=== PATIENT | female | born 1995 | race Caucasian/White ===

== ENCOUNTER 2016-11-17 13:27 | Emergency (ER) | payer BC ==
[2016-11-17] MEDS ORDERED: KETOROLAC TROMETHAMINE 30 MG/ML VIAL IM ONE (13:45)
[2016-11-17] MEDS ORDERED: ACETAMINOPHEN 500 MG TABLET PO ONE (13:45)
[2016-11-17] MEDS ORDERED: KETOROLAC TROMETHAMINE 30 MG/ML VIAL ONE (13:48)
--- NOTE | 2016-11-17 14:23 | ERNOTE ---
Upper Extremity HPI - Narrative Date of Service: 11/17/16 - General Extremities Pain Location: elbow: right - Pain and Swelling after a fall Time Seen by Provider: 11/17/16 13:42 Source: patient Exam Limitations: no limitations - Immun/Allergies/Home Medications Allergies/Adverse Reactions: Allergies Allergy/AdvReac Type Severity Reaction Status Date / Time No Known Allergies Allergy Verified 11/17/16 13:37 Home Medications: HOME MEDICATIONS Norgestimate-Ethinyl Estradiol [Trinessa Tablet] 1 each PO DAILY 05/24/14 [Last Taken Unknown] Acetaminophen [Tylenol] 1,000 mg PO Q8H #12 tablet 11/17/16 [Last Taken Unknown] Naproxen [Naprosyn] 500 mg PO BID #20 tablet 11/17/16 [Last Taken Unknown] traMADol HCL [Ultram] 50 mg PO Q8H #12 tablet 11/17/16 [Last Taken Unknown] - History of Present Illness Narrative: Patient comes due to pain on the R elbow area after a fall. Pain gets worse on ROM. Patient dines any other trauma and LOC. Occurred: yesterday Location of Incident: home Severity: moderate Method of Injury: Reports: fell, direct blow Reason for Fall: Reports: slipped, tripped Loss of Consciousness: Reports: no loss of consciousness Modifying Factors - (Improves): Reports: immobilization, rest Modifying Factors - (Worsens): Reports: movement Associated Symptoms: Reports: tingling, loss of power (rt arm) Other Injuries: Reports: none Prior Treament: Denies: recently seen Review of Systems - Review of Systems Constitutional: Present: no symptoms reported EYE: Present: no symptoms reported ENT: Present: no symptoms reported Respiratory: Present: no symptoms reported Cardiology: Present: no symptoms reported Gastrointestinal/Abdominal: Present: no symptoms reported Genitourinary: Present: no symptoms reported Musculoskeletal: Present: muscle pain Skin: Present: other - Abrassions Neurological: Present: no symptoms reported Endocrine: Present: no symptoms reported Hematologic/Lymphatic: Present: no symptoms reported Psych: Present: no symptoms reported All Other Systems: All systems neg except as marked - Patient's Past Medical History Patient History - Medical: No pertinent hx Patient History - Cancer: No Hx of Cancer Patient History - Surgical Procedures: Other Patient History - Other: None - Social History Living Situations: home Alcohol Use: occasionally Physical Exam - Physical Exam General Appearance: Present: wd/wn, alert, no apparent distress, other - GCS: 15 /15 Ears, Nose, Throat: Present: normal ENT inspection Neck: Present: normal inspection Respiratory: Present: no respiratory distress Cardiovascular/Chest: Present: normal peripheral pulses Gastrointestinal/Abdominal: Present: soft. Absent: tenderness Back Exam: Present: normal inspection, normal range of motion, no CVA tenderness , no vertebral tenderness Extremity Exam: Present: decreased range of motion - R elbow area, pelvis stable , bony tenderness - Lateral epicondyle of the R elbow, joint swelling - mild. Absent: joint redness Neurological Exam: Present: alert, oriented, normal mood/affect, no motor/ sensory deficits Skin Exam: Present: other - patient with superficial abrasions on the R elbow area.. Absent: cyanosis, jaundice, pallor Lymphatic Exam: Present: no adenopathy ED Progress - Date and Time Seen: Date and Time: 11/17/16 14:17 Patient with no deep puncture wound. There is an anterior and posterior fat pat noticed. Immobilization has been recommended. - Vital Signs Patient's Vital Signs:: I have reviewed the patient's vital signs. Vital Signs: Vital Signs 11/17/16 13:32 Temperature 36.0 C L Pulse Rate 98 Respiratory 12 Rate Blood Pressure 119/72 O2 Sat by Pulse 100 Oximetry - X-Ray X-Ray #1 X-Ray: elbow X-ray Comments: No Fx reported by Radiologist - Progress/Reassessment Chief Complaint: Upper Extremity Injury/Problem Progress:: Improved - Transfer of Care Expected Disposition: Discharge Departure Clinical Impression: Elbow sprain Qualifiers: Encounter type: initial encounter Laterality: right Qualified Code(s): S53.401A - Unspecified sprain of right elbow, initial encounter - Departure Disposition: Home self-care Condition: Stable Instructions: Elbow Contusion, Elbow Fracture, Simple, Form - Excuse from Work , School, or Physical Activity Additional Instructions: Please follow up with your Primary Care Provider. Repeat x-ray in 2 weeks if condition doesn't improve. Prescriptions: Acetaminophen [Tylenol] 1,000 mg PO Q8H #12 tablet Naproxen [Naprosyn] 500 mg PO BID #20 tablet traMADol HCL [Ultram] 50 mg PO Q8H #12 tablet
[2016-11-17 14:37] VITALS: BP 110/62
== END 2016-11-17 14:35 | disposition home or self-care (01) ==
LOC: ER 13:27
DX: S53.401A Unspecified sprain of right elbow, initial encounter (principal); W18.30XA Fall on same level, unspecified, initial encounter; Y92.009 Unspecified place in unspecified non-institutional (private) residence as the place of occurrence of the external cause